=== PATIENT | male | born 1960 | race Caucasian/White ===

== ENCOUNTER → 2018-10-26 | Outpatient (CLI) | payer OTHER ==
--- NOTE | 2018-10-26 14:32 | EST ---
EXERCISE STRESS AGE: 58 SEX: M HT: 72" WT: 245 PROTOCOL: Miller STAGE: 3 DURATION OF EXERCISE: 7:00 HEART RATE REST: 77 BLOOD PRESSURE REST: 141/87 MAXIMUM HEART RATE ACHIEVED: 154 MAXIMUM BLOOD PRESSURE: 168/85 85% MPHR: 136 100% MPHR: 160 METS: 8.5 INDICATIONS: Dyspnea. CLINICAL INFORMATION: Baseline rhythm is sinus mechanism, rate of 77, normal axis and intervals. Normal echocardiogram. Baseline blood pressure 141/87 mmHg. Patient exercised on Miller protocol for 7 minutes, reaching peak rate of 154 beats per minute which is equal to 96% maximum predicted heart rate. Peak blood pressure 166/85 mmHg. Test was terminated due to fatigue. There was no chest pain. Electrocardiograph monitoring revealed no evidence of diagnostic ischemic ST deviation. FINDINGS: 1. Good exercise tolerance with normal echocardiograph response to exercise. 2. No symptoms of chest discomfort. MMODL / IJN: [id number] /
== END | disposition home or self-care (01) ==
LOC: RADNMMAIN 10:45
PROVIDERS: ATTEND Family Medicine
DX: R06.09 Other forms of dyspnea (principal)
CPT/HCPCS: 93017

== ENCOUNTER 2018-12-15 10:20 | Day surgery (SDC) | payer OTHER ==
[2018-12-14 09:28] VITALS: BMI 32.5
--- NOTE | 2018-12-15 08:12 | P.GSHP ---
History of Present Illness H&P Date: 12/15/18 CHIEF COMPLAINT: Colon screen HISTORY OF PRESENT ILLNESS: The patient is a 58-year-old male who presents for colon screen. Lower endoscopy was offered for further evaluation and management. PAST MEDICAL HISTORY: Please see list. PAST SURGICAL HISTORY: Please see list. MEDICATIONS: Please see list. ALLERGIES: Please see list. SOCIAL HISTORY: No illicit drug use FAMILY HISTORY: No reports of Crohn disease or ulcerative colitis. REVIEW OF ORGAN SYSTEMS: CONSTITUTIONAL: No reports of fevers or chills. PHYSICAL EXAM: VITAL SIGNS: Stable GENERAL: Well-developed pleasant in no acute distress. HEENT: No scleral icterus. Extraocular movements grossly intact. Moist buccal mucosa. NECK: Supple without lymphadenopathy. CHEST: Unlabored respirations. Equal bilateral excursions. CARDIOVASCULAR: Regular rate and rhythm. Distal 2+ pulses. ABDOMEN: Soft, nontender, nondistended. MUSCULOSKELETAL: No clubbing, cyanosis, or edema. ASSESSMENT: 1. Colon screen. PLAN: 1. Recommend proceeding with a lower endoscopy Past Medical History Past Medical History: Musculoskeletal Disorder Additional Past Medical History / Comment(s): borderline diabetic History of Any Multi-Drug Resistant Organisms: None Reported Past Surgical History: Cholecystectomy, Hernia Repair Past Anesthesia/Blood Transfusion Reactions: Postoperative Nausea & Vomiting ( PONV) Smoking Status: Never smoker - Past Family History Mother Family Medical History: No Reported History Medications and Allergies Home Medications Medication Instructions Recorded Confirmed Type Multivitamins, Thera [Multivitamin 1 tab PO DAILY 12/14/18 12/14/18 History (formulary)] Allergies Allergy/AdvReac Type Severity Reaction Status Date / Time No Known Allergies Allergy Verified 12/14/18 09:23
[2018-12-15] MEDS ORDERED: LACTATED RINGERS 1,000 ML IV ONE (10:40)
[2018-12-15] MEDS ORDERED: LIDOCAINE 1% 20 ML VIAL (10MG/ML) FOR IV START INTRADERMA ONE (10:41)
[2018-12-15 10:44] VITALS: RESP 18; TEMP 97.8
[2018-12-15] MEDS ORDERED: ONDANSETRON 4 MG/2 ML VIAL IVP ONE (10:52)
[2018-12-15] MEDS ORDERED: PROPOFOL 10 MG/ML 20 ML VIAL IV ONE (11:27)
--- NOTE | 2018-12-15 11:50 | P.PCN ---
Date of Procedure: 12/15/18 Description of Procedure: PREOPERATIVE DIAGNOSIS: Colonoscopy screening POSTOPERATIVE DIAGNOSIS: Colonoscopy screening, low risk Internal hemorrhoids, grade 2 OPERATION: Colonoscopy to the ileocecal valve and appendiceal orifice. SURGEON: Sadia Gomez MD. ANESTHESIA: MAC. INDICATIONS: The patient is a 58-year-old male who presents for colonoscopy screening. Last colonoscopy was 10 years ago. Benefits and risks were described and informed consent was obtained. DESCRIPTION OF PROCEDURE: The patient had undergone Gatorade, MiraLAX and Dulcolax prep. He had been brought into the operating room and laid in the left lateral decubitus position. After adequate intravenous sedation, the rectum was examined with 2% lidocaine jelly. The prostate was smooth and without abnormality. No external hemorrhoids were encountered. The rectal tone was within normal limits. No lesions were palpated in the rectal vault. An Olympus colonoscope was advanced until the ileocecal valve and appendiceal orifice were clearly viewed. The prep was excellent with clear visualization of the mucosal folds. The scope was removed with visualization of each mucosal fold. No scattered diverticulosis was encountered. No colonic polyps were found. No evidence of focal colitis was found. Retroflexion of the scope demonstrated grade 1 internal hemorrhoids without active bleeding or inflammation. The colon was desufflated. The patient had tolerated the procedure well. Withdrawal time was over 6 minutes. FINDINGS: Internal hemorrhoids, grade 2 No external prolapsed hemorrhoids. No arteriovenous malformations. No adenomatous polyps. No focal colitis. No sigmoid diverticulosis RECOMMENDATIONS: Lower endoscopy in 10 years, 2028 Plan - Discharge Summary New Discharge Prescriptions: No Action Multivitamins, Thera [Multivitamin (formulary)] 1 tab PO DAILY Discharge Medication List Multivitamins, Thera [Multivitamin (formulary)] 1 tab PO DAILY 12/14/18 [History ]
[2018-12-15 12:13] VITALS: BP 115/72; PULSE 80
== END 2018-12-15 12:39 | disposition home or self-care (01) ==
LOC: ORWHC2ENDO 10:20
PROVIDERS: ATTEND Surgery Plastic and Reconstructive Surgery
DX: Z12.11 Encounter for screening for malignant neoplasm of colon (principal); K64.1 Second degree hemorrhoids; R73.03 Prediabetes; M79.9 Soft tissue disorder, unspecified
CPT/HCPCS: J2405; J2704; G0121

== ENCOUNTER 2021-03-25 05:49 | Emergency (ER) | payer BC, OTHER ==
[2021-03-25] MEDS ORDERED: ONDANSETRON 4 MG/2 ML VIAL ONE (06:12)
[2021-03-25] MEDS ORDERED: KETOROLAC 15 MG/ML 1 ML VIAL IVP STA (06:33)
[2021-03-25] MEDS ORDERED: SODIUM CHLORIDE 0.9% 1,000 ML IV STA (06:33)
[2021-03-25] MEDS ORDERED: ONDANSETRON 4 MG/2 ML VIAL IVP STA (06:33)
[2021-03-25] MEDS ORDERED: SODIUM CHLORIDE 0.9% 500 ML 500 ML IV STA (06:33)
[2021-03-25] MEDS: HYDROmorphone 0.5 MG/0.5 ML SYRINGE IVP STA ×2 (06:38→07:25)
[2021-03-25 06:45] LABS: Basophils % (A) 0 %; Eosinophils # (A) 0.1 k/uL (0-0.7); Eosinophils % (A) 1 %; HCT 47.5 % (39.0-53.0); HGB 16.3 gm/dL (13.0-17.5); Lymphocytes # (A) 1.7 k/uL (1.0-4.8); Lymphocytes % (A) 29 %; MCH 31.5 pg (25.0-35.0); MCHC 34.2 g/dL (31.0-37.0); MCV 92.2 fL (80.0-100.0); Mean Platelet Volume 6.4; Monocytes # (A) 0.3 k/uL (0-1.0); Monocytes % (A) 5 %; Neutrophils # (A) 3.8 k/uL (1.3-7.7); Neutrophils % (A) 62 %; Platelet Count 264 k/uL (150-450); RBC 5.16 m/uL (4.30-5.90); RDW 12.4 % (11.5-15.5)
[2021-03-25 06:56] LABS: ALT 32 U/L (4-49); AST 28 U/L (17-59); African American GFR (CKD) >90 (>60 ml/min/1.73 sqM); Alkaline Phosphatase 84 U/L (38-126); Anion Gap 8 mmol/L; Blood Urea Nitrogen 12 mg/dL (9-20); Carbon Dioxide 24 mmol/L (22-30); Chloride 105 mmol/L (98-107); Glucose 176 mg/dL (74-99); Lipase 111 U/L (23-300); Non-African American GFR(CKD) 89 (>60 ml/min/1.73 sqM); Potassium 4.2 mmol/L (3.5-5.1); Sodium 137 mmol/L (137-145); Total Bilirubin 0.6 mg/dL (0.2-1.3); Total Protein 6.7 g/dL (6.3-8.2)
[2021-03-25 07:07] LABS: Appearance,Urine Cloudy (Clear); Bacteria,Urine Rare /hpf; Bilirubin,Urine Negative (Negative); Blood,Urine Large (Negative); Calcium Oxalate Crystals,Urine Few /hpf; Color,Urine Yellow; Glucose,Urine (UA) Negative (Negative); Ketones,Urine Trace (Negative); Leukocyte Esterase,Urine Negative (Negative); Mucus,Urine Moderate /hpf; Nitrite,Urine Negative (Negative); Protein,Urine Trace (Negative); RBC,Urine >182 /hpf (0-5); Specific Gravity,Urine 1.026 (1.001-1.035); Squamous Epithelial Cell,Urine 1 /hpf (0-4); Urobilinogen,Urine <2.0 mg/dL (<2.0); WBC,Urine 3 /hpf (0-5)
--- NOTE | 2021-03-25 07:12 | ED ---
General Adult HPI - General Chief complaint: Urogenital Stated complaint: Urogenital Time Seen by Provider: 03/25/21 06:04 Source: patient, RN notes reviewed Mode of arrival: ambulatory Limitations: no limitations - History of Present Illness Initial comments: This a 60-year-old male presents emergency Department chief complaint of left groin pain, left-sided abdominal pain. Patient states this started right after he urinated this morning. Patient states his Sonata pain nothing makes it feel better or worse. Patient states he had a kidney stone 20 years ago states this feels different. Denies any dysuria hematuria does admit to some nausea without vomiting. No chest pain no shortness but no flank pain. - Related Data Home Medications Medication Instructions Recorded Confirmed Multivitamins, Thera [Multivitamin 1 tab PO DAILY 12/14/18 03/25/21 (formulary)] Ascorbic Acid [Vitamin C] 1,000 mg PO DAILY 03/25/21 03/25/21 Cholecalciferol (Vitamin D3) 150 mcg PO DAILY 03/25/21 03/25/21 [Vitamin D3 (3000 Iu)] Elderberry Fruit and Flower [Black 1 cap PO DAILY 03/25/21 03/25/21 Elderberry 575 mg Cap] Zinc Gluconate [Zinc] 50 mg PO DAILY 03/25/21 03/25/21 Allergies Allergy/AdvReac Type Severity Reaction Status Date / Time No Known Allergies Allergy Verified 03/25/21 07:00 Review of Systems ROS Statement: Those systems with pertinent positive or pertinent negative responses have been documented in the HPI. ROS Other: All systems not noted in ROS Statement are negative. Past Medical History Past Medical History: Musculoskeletal Disorder Additional Past Medical History / Comment(s): borderline diabetic History of Any Multi-Drug Resistant Organisms: None Reported Past Surgical History: Cholecystectomy, Hernia Repair Past Anesthesia/Blood Transfusion Reactions: Postoperative Nausea & Vomiting (PONV) Past Psychological History: No Psychological Hx Reported Smoking Status: Never smoker Past Alcohol Use History: None Reported Past Drug Use History: None Reported - Past Family History Mother Family Medical History: No Reported History General Exam Limitations: no limitations General appearance: alert, in no apparent distress Head exam: Present: atraumatic, normocephalic, normal inspection Respiratory exam: Present: normal lung sounds bilaterally. Absent: respiratory distress, wheezes, rales, rhonchi, stridor Cardiovascular Exam: Present: regular rate, normal rhythm, normal heart sounds. Absent: systolic murmur, diastolic murmur, rubs, gallop, clicks GI/Abdominal exam: Present: soft, normal bowel sounds. Absent: distended, tenderness, guarding, rebound, rigid Back exam: Absent: CVA tenderness (R), CVA tenderness (L) Skin exam: Present: warm, dry, intact, normal color. Absent: rash Course Vital Signs 03/25/21 05:53 Temperature 97.8 F Pulse Rate 55 L Respiratory 20 Rate Blood Pressure 136/91 O2 Sat by Pulse 97 Oximetry - Reevaluation(s) Reevaluation #1: 03/25/21 07:27 Patient reevaluated and resting comfortably in no pain at this time. Medical Decision Making - Medical Decision Making CT shows evidence of 2 mm kidney stone within the bladder. Patient is asymptomatic urinalysis shows Hematuria labs unremarkable. Patient feels improved and will be discharged in stable condition. - Lab Data Result diagrams: 03/25/21 06:34 03/25/21 06:34 Lab Results 03/25/21 03/25/21 03/25/21 Range/Units 06:34 06:34 06:34 WBC 6.0 (3.8-10.6) k/uL RBC 5.16 (4.30-5.90) m/uL Hgb 16.3 (13.0-17.5) gm/dL Hct 47.5 (39.0-53.0) % MCV 92.2 (80.0-100.0) fL MCH 31.5 (25.0-35.0) pg MCHC 34.2 (31.0-37.0) g/dL RDW 12.4 (11.5-15.5) % Plt Count 264 (150-450) k/uL MPV 6.4 Neutrophils % 62 % Lymphocytes % 29 % Monocytes % 5 % Eosinophils % 1 % Basophils % 0 % Neutrophils # 3.8 (1.3-7.7) k/uL Lymphocytes # 1.7 (1.0-4.8) k/uL Monocytes # 0.3 (0-1.0) k/uL Eosinophils # 0.1 (0-0.7) k/uL Basophils # 0.0 (0-0.2) k/uL Sodium 137 (137-145) mmol/L Potassium 4.2 (3.5-5.1) mmol/L Chloride 105 (98-107) mmol/L Carbon Dioxide 24 (22-30) mmol/L Anion Gap 8 mmol/L BUN 12 (9-20) mg/dL Creatinine 0.92 (0.66-1.25) mg/dL Est GFR (CKD-EPI)AfAm >90 (>60 ml/min/1.73 sqM) Est GFR (CKD-EPI)NonAf 89 (>60 ml/min/1.73 sqM) Glucose 176 H (74-99) mg/dL Calcium 9.0 (8.4-10.2) mg/dL Total Bilirubin 0.6 (0.2-1.3) mg/dL AST 28 (17-59) U/L ALT 32 (4-49) U/L Alkaline Phosphatase 84 (38-126) U/L Total Protein 6.7 (6.3-8.2) g/dL Albumin 4.0 (3.5-5.0) g/dL Lipase 111 (23-300) U/L Urine Color Yellow Urine Appearance Cloudy (Clear) Urine pH 5.0 (5.0-8.0) Ur Specific [place] 1.026 (1.001-1.035) Urine Protein Trace H (Negative) Urine Glucose (UA) Negative (Negative) Urine Ketones Trace H (Negative) Urine Blood Large H (Negative) Urine Nitrite Negative (Negative) Urine Bilirubin Negative (Negative) Urine Urobilinogen <2.0 (<2.0) mg/dL Ur Leukocyte Esterase Negative (Negative) Urine RBC >182 H (0-5) /hpf Urine WBC 3 (0-5) /hpf Ur Squamous Epith Cells 1 (0-4) /hpf Calcium Oxalate Crystal Few H (None) /hpf Urine Bacteria Rare H (None) /hpf Urine Mucus Moderate H (None) /hpf Disposition Clinical Impression: Kidney stone Disposition: HOME SELF-CARE Condition: Stable Instructions (If sedation given, give patient instructions): Kidney Stones (ED) Additional Instructions: Please return to the Emergency Department if symptoms worsen or any other concerns. Is patient prescribed a controlled substance at d/c from ED?: No Referrals: Tico Chew MD [Primary Care Provider] - 1-2 days Time of Disposition: 07:28
--- NOTE | 2021-03-25 07:19 | CT ---
EXAMINATION TYPE: CT abdomen pelvis wo con DATE OF EXAM: 03/25/2021 COMPARISON: None HISTORY: LLQ pain CT DLP: 911 mGycm Examination of the solid and hollow viscera is limited given the lack of contrast. FINDINGS: LUNG BASES: No evidence for nodule. No evidence for infiltrate. LIVER/GB: 1 cm hypoattenuating lesion left hepatic lobe is nonspecific however may reflect a small cy st. Cholecystectomy clips are in place. PANCREAS: No pancreatic mass identified. No inflammatory process seen. SPLEEN: No evidence for splenomegaly. No intrasplenic lesions seen. ADRENALS: No adrenal nodules identified. No evidence for thickening. KIDNEYS: 2 mm calculus within the urinary bladder compatible with recently passed calculus. There is mild residual left-sided hydronephrosis and perinephric stranding seen. No additional calculi identif ied at this time. No visible obstructing calculus at this time. BOWEL: Appendix has a normal appearance. No evidence of bowel obstruction. No inflammatory process. Lymph nodes: No evidence for adenopathy greater than 1 cm. Abdominal aorta: Atheromatous changes seen. No evidence for aneurysm. Genital organs: No significant abnormality. Other: Fat-containing inguinal hernias identified.Mild degenerative change lumbar spine. IMPRESSION: 2 mm calculus within the urinary bladder compatible with recently passed calculus. There is mild resi dual left-sided hydronephrosis and perinephric stranding seen.
[2021-03-25 08:18] VITALS: BP 122/79; PULSE 68; RESP 18; TEMP 97.4
== END 2021-03-25 08:18 | disposition home or self-care (01) ==
LOC: EC 05:49
DX: N20.0 Calculus of kidney (principal)
CPT/HCPCS: 51798; 36415; 80053; 83690; 85025; 81001; 74176; 99284; 96374; 96361; J2405; J1885